=== PATIENT | male | born 1990 | race Two or more races ===

== ENCOUNTER 2020-10-09 01:35 | Emergency (ER) | payer MEDICAID, OTHER ==
[~2020-10-09] VITALS: Ht 193 cm; Wt 86.2 kg
[2020-10-09] MEDS ORDERED: TETRACAINE HCL 2 % TOP SOL 30ML MT ONE (05:00)
[2020-10-09] MEDS ORDERED: FLUORESCEIN SOD OPTH TEST STRIP RIGHTEYE ONE (05:00)
[2020-10-09 05:07] VITALS: BP 114/87
[2020-10-09] MEDS ORDERED: TETRACAINE HCL 0.5% OPTH(EYE) SOLN 4ML ONE (06:09)
== END 2020-10-09 06:33 | disposition home or self-care (01) ==
LOC: ER 01:35
DX: S05.02XA Injury of conjunctiva and corneal abrasion without foreign body, left eye, initial encounter (principal); X58.XXXA Exposure to other specified factors, initial encounter; Y93.89 Activity, other specified; Y92.89 Other specified places as the place of occurrence of the external cause; Y99.8 Other external cause status

== ENCOUNTER 2024-01-04 16:05 | Emergency (ER) | payer SELFPAY ==
[~2024-01-04] VITALS: Ht 193 cm; Wt 94.2 kg
[2024-01-04 18:26] VITALS: BP 124/85; PULSE 83; RESP 18; TEMP 98.4; O2SAT 95
[2024-01-04] MEDS ORDERED: MOXI0.5D9 OP (18:59)
[2024-01-04] MEDS: DexAMETHasone SOD PHOS 10MG/1ML VIAL INJ IM ONE (19:04)
== END 2024-01-04 18:59 | disposition home or self-care (01) ==
LOC: ER 16:05
DX: H10.33 Unspecified acute conjunctivitis, bilateral (principal)
CPT/HCPCS: 96372; 99283; J1100